=== PATIENT | male | born 1975 | race Caucasian/White ===

== ENCOUNTER 2019-04-08 12:51 | Emergency (ER) | payer MEDICAID ==
[~2019-04-08] VITALS: Ht 167.6 cm; Wt 75.7 kg
[2019-04-08 13:01] VITALS: Ht 167.6 cm; Wt 75.7 kg
[2019-04-08 14:15] LABS: CALCIUM 9.1 mg/dL (8.5-10.1); CARBON DIOXIDE 28.1 mmol/L (21-32); CHLORIDE SERUM 104 mmol/L (98-107); GFR1 > 60 mL/min; GLUCOSE SERUM 106 mg/dL (74-106); POTASSIUM SERUM 4.3 mmol/L (3.5-5.1); SODIUM SERUM 139 mmol/L (136-145)
[2019-04-08 14:19] LABS: ALBUMIN 4.1 g/dL (3.4-5.0); ALKALINE PHOSPHATASE 116 U/L (46-116); ALT/SGPT 63 U/L (16-63); AMYLASE 69 U/L (25-115); AST/SGOT 38 U/L (15-37); BILIRUBIN TOTAL 1.5 mg/dL (0.20-1.00); LIPASE 166 IU/L (73-393); TOTAL PROTEIN, SERUM 8.1 g/dL (6.4-8.2)
[2019-04-08 14:20] LABS: BASOPHIL % 0.3 % (0-2); PLATELET COUNT 167 x10^3mcL (130-400)
[2019-04-08 15:22] VITALS: BP 117/84
== END 2019-04-08 15:22 | disposition home or self-care (01) ==
LOC: ED 12:51
PROVIDERS: Emergency Medicine
DX: R10.816 Epigastric abdominal tenderness (principal); M77.9 Enthesopathy, unspecified
CPT/HCPCS: 36415; J1885; Q0092

== ENCOUNTER 2019-11-02 21:43 | Emergency (ER) | payer SELFPAY ==
[~2019-11-02] VITALS: Ht 167.6 cm; Wt 75.3 kg
[2019-11-02 21:53] VITALS: Ht 167.6 cm; Wt 75.3 kg
[2019-11-02 22:30] LABS: BASOPHIL % 0.7 % (0-2); PLATELET COUNT 148 x10^3mcL (130-400)
[2019-11-02 22:48] LABS: CALCIUM 8.6 mg/dL (8.5-10.1); CARBON DIOXIDE 27.8 mmol/L (21-32); CHLORIDE SERUM 105 mmol/L (98-107); CREATININE SERUM 0.9 mg/dL (0.7-1.3); GFR1 > 60 mL/min; GLUCOSE SERUM 98 mg/dL (74-106); POTASSIUM SERUM 3.7 mmol/L (3.5-5.1); SODIUM SERUM 139 mmol/L (136-145)
[2019-11-02 22:53] LABS: ALBUMIN 3.7 g/dL (3.4-5.0); ALKALINE PHOSPHATASE 111 U/L (46-116); ALT/SGPT 125 U/L (16-63); BILIRUBIN TOTAL 0.8 mg/dL (0.20-1.00); LIPASE 580 IU/L (73-393); TOTAL PROTEIN, SERUM 7.3 g/dL (6.4-8.2)
[2019-11-02 23:09] LABS: AST/SGOT 52 U/L (15-37)
[2019-11-03 01:19] VITALS: BP 121/76
== END 2019-11-03 01:19 | disposition home or self-care (01) ==
LOC: ED 21:43
DX: K29.70 Gastritis, unspecified, without bleeding (principal); K85.90 Acute pancreatitis without necrosis or infection, unspecified
CPT/HCPCS: J2405; J7030; Q0092

== ENCOUNTER 2019-12-09 13:52 | Emergency (ER) | payer SELFPAY ==
[~2019-12-09] VITALS: Ht 167.6 cm; Wt 73.9 kg
[2019-12-09 14:04] VITALS: Ht 167.6 cm; Wt 73.9 kg
[2019-12-09 17:06] VITALS: BP 140/66
== END 2019-12-09 17:06 | disposition home or self-care (01) ==
LOC: ED 13:52
DX: M50.30 Other cervical disc degeneration, unspecified cervical region (principal); F12.20 Cannabis dependence, uncomplicated
CPT/HCPCS: J1100; J1885